=== PATIENT | female | born 1955 | race Caucasian/White ===

== ENCOUNTER 2017-11-27 16:45 | Emergency (ER) | payer OTHER ==
[2017-11-27 17:16] VITALS: BP 107/71
[2017-11-27 18:30] LABS: BASOPHILS # (AUTO) 0.02 x10^3/uL (0-0.1); BASOPHILS % (AUTO) 0 % (0-1); EOSINOPHILS # (AUTO) 0.01 x10^3/uL (0-0.4); EOSINOPHILS % (AUTO) 0 % (1-7); LYMPHOCYTES # (AUTO) 0.52 x10^3/uL (1-3.4); LYMPHOCYTES % (AUTO) 4 % (22-44); MD NO; MEAN CORPUSCULAR HEMOGLOBIN 33.6 pg (27.0-34.8); MEAN CORPUSCULAR HGB CONC 33.5 g/dL (32.4-35.8); MEAN CORPUSCULAR VOLUME 100.5 fL (80-100); MEAN PLATELET VOLUME 7.7 fL (7.4-10.4); MONOCYTES # (AUTO) 0.45 x10^3/uL (0.2-0.8); MONOCYTES % (AUTO) 3 % (2-9); NEUTROPHILS # (AUTO) 13.62 x10^3/uL (1.8-6.8); NEUTROPHILS % (AUTO) 93 % (42-75); PLATELET COUNT 405 x10^3/uL (130-400); RED BLOOD COUNT 4.27 x10^6/uL (3.82-5.3); RED CELL DISTRIBUTION WIDTH 13.2 % (9.6-15.2)
[2017-11-27 18:40] LABS: ALBUMIN 3.8 g/dL (3.4-5.0); ANION GAP 11 mmol/L (5-15); CALCIUM 8.9 mg/dL (8.5-10.1); CHLORIDE 99 mmol/L (98-107); CREATININE 0.61 mg/dL (0.55-1.02)
[2017-11-27] MEDS ORDERED: OXYC-307 PO (19:50)
[2017-11-27] MEDS ORDERED: OXYC10TA47 PO (19:51)
[2017-11-27] MEDS ORDERED: METHYLNALTREXONE 12 MG/0.6 ML SQ ONE (20:00)
== END 2017-11-27 22:50 | disposition home or self-care (01) ==
LOC: ED 22:47
DX: T40.2X5A Adverse effect of other opioids, initial encounter (principal); K59.00 Constipation, unspecified
CPT/HCPCS: 36415; 74022; 80048; 82040; 85025; 96372